=== PATIENT | male | born 1960 | race Caucasian/White ===

== ENCOUNTER 2023-04-18 09:42 | Emergency (ER) | payer OTHER ==
[~2023-04-18] VITALS: Ht 180.3 cm; Wt 79.5 kg
[2023-04-18] MEDS ORDERED: LIDOCAINE 1% MDV 20ML VIAL SC ONE (10:50)
[2023-04-18] MEDS ORDERED: NEOSPORIN OINT 0.9 GM PKT TOP ONE (10:50)
[2023-04-18] MEDS ORDERED: BOOSTRIX VACCINE (TETANUS/DIPHTH/ACEL. PERTUSSIS) 0.5ML SYR IM ONE (11:00)
[2023-04-18 12:41] VITALS: BP 135/78; TEMP 98.1; O2SAT 95
== END 2023-04-18 12:48 | disposition home or self-care (01) ==
LOC: M ED 09:42
DX: S01.312A Laceration without foreign body of left ear, initial encounter (principal); Y04.0XXA Assault by unarmed brawl or fight, initial encounter; Y92.149 Unspecified place in prison as the place of occurrence of the external cause; Y93.89 Activity, other specified; Y99.8 Other external cause status